=== PATIENT | female | born 1980 | race Hispanic/Latino ===

== ENCOUNTER 2016-10-12 17:06 | Emergency (ER) | payer SELFPAY ==
[~2016-10-12] VITALS: Ht 152.4 cm; Wt 71.6 kg
[2016-10-12 18:14] LABS: HEMATOCRIT 41.3 % (36.0-46.0); MCH 29.3 PG (29.0-34.0); MCHC 32.7 G/DL (30.0-36.0); MCV 89.6 FL (83-99); MEAN PLAT.VOLUME 10.8 uM^3 (9.5-12.4); PLATELET COUNT 364 K/uL (156-360); RBC DIS.WIDTH-SD 39.3 % (39-53); RED BLOOD COUNT 4.61 M/uL (3.80-5.20); WHITE BLOOD COUNT 13.2 K/uL (4.1-10.2)
[2016-10-12 18:25] LABS: CHLORIDE 104 mEq/L (99-109); POTASSIUM 3.6 mEq/L (3.7-5.4); SODIUM 139 mEq/L (136-147)
[2016-10-12 18:27] LABS: GLUCOSE 107 mg/dL (70-99)
[2016-10-12 18:28] LABS: ANION GAP 12 MEQ/L (2-14)
[2016-10-12 18:30] LABS: GFR ESTIMATE (CALCULATED) > 59 mL/min/
[2016-10-12 18:31] LABS: UREA NITROGEN (BUN) 9 mg/dL (9-23)
[2016-10-12 18:36] LABS: TROP-I INTERPRETATION NEGATIVE; TROPONIN-I 0.02 ng/mL (0.0-0.30)
[2016-10-12 20:12] LABS: BILIRUBIN NEGATIVE; BLOOD NEGATIVE; COLOR YELLOW ((YELLOW)); GLUCOSE (STRIP) NEGATIVE; KETONES 5; LEUKOCYTES NEGATIVE; NITRITE NEGATIVE; PROTEIN (STRIP) NEGATIVE; SPECIFIC GRAVITY 1.021 (1.000-1.030); UROBILINOGEN 0.2 MG/DL (0.2-1.0)
[2016-10-12 20:15] LABS: ADD MIUA? NO
[2016-10-12] MEDS ORDERED: FIORICET,ESG1 TABLET PO (20:30)
[2016-10-12] MEDS ORDERED: OMEPRAZOLE10 M1 PO (20:30)
[2016-10-12] MEDS ORDERED: CLONAZEPAM2 MG PO (20:30)
[2016-10-12 20:43] VITALS: BP 110/58
== END 2016-10-12 20:45 | disposition home or self-care (01) ==
LOC: EME 17:06
PROVIDERS: Physician Assistant
DX: R07.9 Chest pain, unspecified (principal); Z76.0 Encounter for issue of repeat prescription; R06.02 Shortness of breath; R51 Headache; R10.9 Unspecified abdominal pain
CPT/HCPCS: 71020; 80048; 81003; 84484; 85027; 93005; 99281; 99284

== ENCOUNTER 2017-09-29 21:48 | Observation (INO) | payer BC ==
[~2017-09-29] VITALS: Ht 149.9 cm; Wt 77.6 kg
[~2017-09-29 21:48] MED LIST: BENTYL20 MG PO; CLONAZEPAM2 MG PO; FIORICET,ESG1 TABLET PO; IMODIUM A-D2 M2 PO; OMEPRAZOLE10 M1 PO; ZOFRAN4 MG PO
[2017-09-29 22:31] LABS: APPEARANCE SL.HAZY ((CLEAR)); BILIRUBIN NEGATIVE; BLOOD NEGATIVE; COLOR YELLOW ((YELLOW)); GLUCOSE (STRIP) NEGATIVE; KETONES 5; LEUKOCYTES TRACE; NITRITE NEGATIVE; PROTEIN (STRIP) NEGATIVE; SPECIFIC GRAVITY 1.017 (1.000-1.030); UROBILINOGEN 0.2 MG/DL (0.2-1.0)
[2017-09-29 22:37] LABS: BACTERIA RARE /HPF; EPITHELIAL CELLS 2+ /HPF; MUCUS TRACE /LPF; RED BLOOD CELLS 0-5 /HPF (0-5); UCUL ADDED? NO; WHITE BLOOD CELLS 0-5 /HPF (0-5)
[2017-09-29 23:03] LABS: HEMATOCRIT 38.8 % (36.0-46.0); HEMOGLOBIN 13.1 G/DL (11.9-15.5); MCH 29.2 PG (29.0-34.0); MCHC 33.8 G/DL (30.0-36.0); MCV 86.6 FL (83-99); PLATELET COUNT 300 K/uL (156-360); RBC DIS.WIDTH-CV 12.8 % (11.8-14.6); RBC DIS.WIDTH-SD 40.2 % (39-53); RED BLOOD COUNT 4.48 M/uL (3.80-5.20); WHITE BLOOD COUNT 15.6 K/uL (4.1-10.2)
[2017-09-29 23:14] LABS: ALBUMIN 4.3 g/dL (3.2-4.8)
[2017-09-29 23:15] LABS: CHLORIDE 105 mEq/L (99-109); POTASSIUM 3.7 mEq/L (3.7-5.4); SODIUM 139 mEq/L (136-147)
[2017-09-29 23:17] LABS: GLUCOSE 109 mg/dL (70-99); TOTAL PROTEIN 7.8 g/dL (6.4-8.3)
[2017-09-29 23:19] LABS: TOTAL BILIRUBIN 0.3 mg/dL (0.0-1.0)
[2017-09-29 23:20] LABS: ALKALINE PHOSPHATASE 107 IU/L (3-129)
[2017-09-29 23:21] LABS: CREATININE 0.8 mg/dL (0.6-1.3); GFR ESTIMATE (CALCULATED) > 59 mL/min/
[2017-09-29 23:22] LABS: AST (GOT) 21 IU/L (2-34); UREA NITROGEN (BUN) 8 mg/dL (9-23)
[2017-09-29 23:24] LABS: ALT (GPT) 21 IU/L (3-49); LIPASE 14 U/L (1.0-51.0)
[2017-09-29 23:30] LABS: QUANTITATIVE HCG < 4.0 MIU/ML
[2017-09-30] MEDS ORDERED: SUMATRIPTAN SU100 MG PO (00:36)
[2017-09-30] MEDS ORDERED: BUSPAR10 MG PO (00:36)
[2017-09-30] MEDS ORDERED: ONDANSETRON ODT4 MG PO (00:36)
[2017-09-30 01:30] LABS: TROP-I INTERPRETATION NEGATIVE; TROPONIN-I 0.01 ng/mL (0.0-0.30)
[2017-09-30 06:56] VITALS: BP 98/53
[2017-09-30 07:39] VITALS: BP 90/54
[2017-09-30] MEDS ORDERED: KLONOPIN2 MG PO (11:40)
[2017-09-30] MEDS ORDERED: FIORICET,ESG1 TABLET PO (11:41)
[2017-09-30] MEDS ORDERED: WELLBUTRIN XL150 MG PO (11:41)
[2017-09-30] MEDS ORDERED: OMEPRAZOLE40 M1 PO (11:43)
[2017-09-30 12:36] VITALS: BP 107/55
[2017-09-30 16:25] VITALS: BP 112/58
[2017-09-30 19:56] VITALS: BP 100/55
[2017-09-30 23:35] VITALS: BP 101/57
[2017-10-01 03:55] VITALS: BP 105/58
[2017-10-01 07:40] VITALS: BP 97/53
[2017-10-01 10:02] LABS: ALBUMIN 3.5 G/DL (3.2-4.8); ALKALINE PHOSPHATASE 72 IU/L (3-129); ALT (GPT) 13 IU/L (3-49); AST (GOT) 14 IU/L (2-34); CHLORIDE 108 MEQ/L (99-109); CREATININE 0.6 MG/DL (0.6-1.3); GFR ESTIMATE (CALCULATED) > 59 mL/min/; GLUCOSE 90 mg/dL (70-99); LIPASE 11 U/L (1.0-51.0); SODIUM 140 MEQ/L (136-147); TOTAL BILIRUBIN 0.4 MG/DL (0.0-1.0); TOTAL PROTEIN 6.1 G/DL (6.4-8.3); UREA NITROGEN (BUN) 5 mg/dL (9-23)
[2017-10-01 10:28] LABS: C-REACTIVE PROTEIN 2.2 MG/L (0-10)
[2017-10-01 11:40] LABS: HEMOGLOBIN 11.7 G/DL (11.9-15.5); MCH 28.8 PG (29.0-34.0); MCHC 32.5 G/DL (30.0-36.0); MCV 88.7 FL (83-99); PLATELET COUNT 252 K/uL (156-360); RBC DIS.WIDTH-SD 42.3 % (39-53); RED BLOOD COUNT 4.06 M/uL (3.80-5.20); WHITE BLOOD COUNT 9.2 K/uL (4.1-10.2)
[2017-10-01 11:46] VITALS: BP 104/51
[2017-10-01] MEDS ORDERED: AUGMENTIN875 MG PO (12:28)
[2017-10-01] MEDS ORDERED: NORCO 5/3251 TABLET PO (12:28)
[2017-10-01] MEDS ORDERED: ZOFRAN4 MG PO (12:28)
[2017-10-02 08:08] LABS: HEMOGLOBIN 11.7 G/DL (11.9-15.5); MCH 28.8 PG (29.0-34.0); MCHC 32.5 G/DL (30.0-36.0); MCV 88.7 FL (83-99); PLATELET COUNT 252 K/uL (156-360); RBC DIS.WIDTH-SD 42.3 % (39-53); RED BLOOD COUNT 4.06 M/uL (3.80-5.20); WHITE BLOOD COUNT 9.2 K/uL (4.1-10.2)
== END 2017-10-01 14:56 | disposition home or self-care (01) ==
LOC: EME 21:48 → 2EASTP 09-30 03:20 → EDOF 09-30 03:20 → ENRESERV 09-30 03:27 → 2EASTP 09-30 06:11
PROVIDERS: Student in an Organized Health Care Education/Training Program; Surgery
DX: K81.0 Acute cholecystitis (principal); F41.9 Anxiety disorder, unspecified; Z82.49 Family history of ischemic heart disease and other diseases of the circulatory system
CPT/HCPCS: 74177; 76705; 80053; 81003; 83690; 84484; 84702; 85027; 86140; 93005; 99281; 99285; G0378; J0295; J2270; J2405; J7030; J7050

== ENCOUNTER 2017-11-02 05:26 | Day surgery (SDC) | payer BC, OTHER ==
[~2017-11-02] VITALS: Ht 134.6 cm; Wt 68.0 kg
[~2017-11-02 05:26] MED LIST changes: +AUGMENTIN875 MG PO; +BUSPAR10 MG PO; +KLONOPIN1 MG PO; +KLONOPIN2 MG PO; +NORCO 5/3251 TABLET PO; +OMEPRAZOLE40 M1 PO; +ONDANSETRON ODT4 MG PO; +SUMATRIPTAN SU100 MG PO; +WELLBUTRIN XL300 MG PO
[2017-11-02 05:54] VITALS: BP 1118/68; BP 118/68
[2017-11-02] MEDS ORDERED: PERCOCET 5/31 TABLET PO (09:09)
[2017-11-02] MEDS ORDERED: COLACE100 MG PO (09:09)
[2017-11-02 12:00] VITALS: BP 121/68
[2017-11-02 13:00] VITALS: BP 118/75
[2017-11-02 14:00] VITALS: BP 125/81
== END 2017-11-02 14:17 | disposition home or self-care (01) ==
LOC: SDC 05:26
DX: K80.10 Calculus of gallbladder with chronic cholecystitis without obstruction (principal); K35.80 Unspecified acute appendicitis; R59.0 Localized enlarged lymph nodes; K66.0 Peritoneal adhesions (postprocedural) (postinfection); K21.9 Gastro-esophageal reflux disease without esophagitis; E66.9 Obesity, unspecified; Z68.29 Body mass index [BMI] 29.0-29.9, adult; F43.22 Adjustment disorder with anxiety; F41.9 Anxiety disorder, unspecified; F32.9 Major depressive disorder, single episode, unspecified; Z82.49 Family history of ischemic heart disease and other diseases of the circulatory system; Z81.8 Family history of other mental and behavioral disorders
CPT/HCPCS: 88302; 88304; J0330; J1885; J2250; J3010; S0020; S0074